=== PATIENT | female | born 1990 | race Caucasian/White ===

== ENCOUNTER 2019-01-23 13:18 | Outpatient (CLI) | payer OTHER ==
--- NOTE | 2019-01-23 13:47 | ULT ---
US Thyroid STANDARD History: Enlarged thyroid Comparison: None. Findings: Real-time grayscale and color evaluation of the thyroid was performed. There is a heterogeneous lobular appearance of the thyroid without mass or abnormal nodule. The right lobe measures 5.1 x 1.6 x 1.9 cm in the left lobe measures 4.8 x 1.2 x 1.6 cm. The isthmus measures 5 mm in AP dimension. Impression: Heterogeneous peripherally lobular thyroid without abnormal nodule.
== END 2019-01-23 13:19 | disposition home or self-care (01) ==
LOC: BICULT 13:18
PROVIDERS: ATTEND Family Medicine
DX: E04.9 Nontoxic goiter, unspecified (principal)
CPT/HCPCS: 76536

== ENCOUNTER 2020-08-04 05:27 | Day surgery (SDC) | payer OTHER ==
[2020-08-04] MEDS ORDERED: metroNIDAZOLE 500 MG/100 ML BAG ONE (06:18)
[2020-08-04] MEDS ORDERED: Acetaminophen 500 MG TAB ONE (06:18)
[2020-08-04] MEDS ORDERED: cefOXitin Sodium/Dextrose 2 GM/50 ML BAG ONE (06:18)
[2020-08-04] MEDS ORDERED: Ketorolac Tromethamine 30 MG/ML VIAL ONE (06:18)
[2020-08-04] MEDS ORDERED: Fentanyl 250 MCG/5 ML VIAL ONE (06:28)
[2020-08-04] MEDS ORDERED: Midazolam HCl 5 mg/5 ml Vial ONE (06:29)
[2020-08-04] MEDS ORDERED: Bupivacaine PF 0.5% 30 ML VIAL ONE (06:36)
[2020-08-04] MEDS ORDERED: Lidocaine 1% w/Epinephrine 1:100K 20 ML VIAL ONE (06:36)
[2020-08-04] MEDS ORDERED: Lidocaine 2% Jelly 5 ML TUBE ONE (06:38)
[2020-08-04 07:16] LABS: #Basophils 0.1 thou/uL (0.0-0.2); #Eosinphils 0.2 thou/uL (0.0-0.7); #Monocytes 0.7 thou/uL (0.11-0.59); #Neutrophils 3.2 thou/uL (1.40-6.50); %Basophils 1.2 % (0.0-1.0); %Eosinophils 3.6 % (0.0-10.0); %Lymphocytes 19.5 % (21.0-51.0); %Neutrophils 62.6 % (42.0-75.0); Hemoglobin 13.3 g/dL (12.0-16.0); Mean Corpuscular HGB CONC 33.3 g/dL (32.0-36.0); Mean Corpuscular Hemoglobin 30.5 pg (27.0-31.0); Mean Corpuscular Volume 91.5 fL (78.0-98.0); Mean Platelet Volume 8.7 fL (7.4-10.4); Platelet Count 143 thou/uL (130-400); RBC Distribution Width 11.3 % (11.5-14.5); Red Blood Cell (RBC) Count 4.37 mill/uL (4.20-5.40); White Blood Cell (WBC) Count 5.1 thou/uL (4.8-10.8)
[2020-08-04] MEDS ORDERED: Ondansetron PF 4 MG/2 ML Vial ONE ×2 (09:38→12:12)
[2020-08-04] MEDS ORDERED: Dexamethasone 20 MG/5 ML VIAL ONE (09:38)
[2020-08-04] MEDS ORDERED: Glycopyrrolate 0.2 MG/ML 5 ML SYRINGE ONE (09:38)
[2020-08-04] MEDS ORDERED: Lidocaine 1% PF 5 ML VIAL ONE (09:38)
[2020-08-04] MEDS ORDERED: PROPOFOL 200 MG/20 ML VIAL ONE (09:38)
[2020-08-04] MEDS ORDERED: Rocuronium Bromide 10 MG/ML (10ML VIAL) ONE (09:38)
[2020-08-04] MEDS ORDERED: Meperidine HCl/PF 25 MG/ML VIAL ONE (09:41)
[2020-08-04] MEDS ORDERED: Fentanyl 100 MCG/2 ML VIAL ONE (10:01)
[2020-08-04] MEDS ORDERED: Promethazine HCl 25 MG/ML VIAL ONE ×2 (10:09→13:59)
[2020-08-04] MEDS ORDERED: Scopolamine 1.5 mg/72 hour Patch ONE (10:44)
--- NOTE | 2020-08-04 11:14 | OP ---
DATE OF PROCEDURE: 08/04/2020 PREOPERATIVE DIAGNOSIS: Probable left hemorrhoids, rectal bleeding. POSTOPERATIVE DIAGNOSIS: Probable left hemorrhoids, rectal bleeding. No evidence of anal fissure. PROCEDURE PERFORMED: Colonoscopy to cecum, normal without diverticula, without polyps. Excellent prep. PPH stapled hemorrhoidectomy. Excision of 3 hemorrhoidal columns, LigaSure. ANESTHESIA: General anesthesia, local with 0.5% Marcaine 30 mL mixed with 1% Xylocaine with epinephrine 20 mL. DESCRIPTION OF PROCEDURE: The patient was taken to the operating room where in the left lateral decubitus position, colonoscope was passed per anus under direct visualization. Using air insufflation, passed throughout the colon to the cecum. Cecum, ascending, transverse, descending, sigmoid colon were normal. There were no polyps, no diverticula. The patient placed in the prone position and perianal area and buttocks prepared with Betadine and draped in routine fashion. Perianal area inspected and there was no evidence of an anal fissure. There were prolapsed external hemorrhoids. There were internal hemorrhoids. PPH stapled hemorrhoidectomy undertaken. Obturator and working port placed, lubricated into the anus and working port secured with four quadrant sutures of 2-0 silk. Suture placement device inserted in the lower rectum and a pursestring suture of 2-0 Prolene placed circumferentially well above the dentate line. Suture placement device removed, stapler applied and Prolene brought out the side holes, air knot tied, secured, compressed within the torque fire range and after about 1 minute stapled hemorrhoidectomy completed firing the stapler removing the hemorrhoids, submitted to the Pathology. Good hemostasis noted and obtained with cautery. Working port PPH stapling device removed. There were persistent 3 quadrant external hemorrhoidal columns, each excised using the LigaSure, reinforcing closure with continuous locked suture of 3-0 chromic and local anesthetic and infiltrated and good hemostasis noted. The patient tolerated the procedure well. Job ID: [id number]
[2020-08-04] MEDS ORDERED: Metoclopramide HCl 10 MG/2 ML VIAL ONE (15:13)
[2020-08-04] MEDS ORDERED: Dexamethasone 4 mg/ml Vial ONE (15:13)
== END 2020-08-04 16:20 | disposition home or self-care (01) ==
LOC: SDC 05:27
PROVIDERS: ATTEND Specialist
PROC: 06BY0ZC Excision of Hemorrhoidal Plexus, Open Approach (ICD-10-PCS; principal; 2020-08-04)
PROC: 0DJD8ZZ Inspection of Lower Intestinal Tract, Via Natural or Artificial Opening Endoscopic (ICD-10-PCS; principal; 2020-08-04)
DX: K64.4 Residual hemorrhoidal skin tags (principal); K64.8 Other hemorrhoids; K60.2 Anal fissure, unspecified; E03.9 Hypothyroidism, unspecified; F41.9 Anxiety disorder, unspecified; Z86.010 Personal history of colon polyps; Z87.891 Personal history of nicotine dependence; Z79.899 Other long term (current) drug therapy
CPT/HCPCS: 85025; 88304; J0694; J1100; J1885; J2175; J2250; J2405; J2550; J2704; J2765; J3010; S0020